=== PATIENT | male | born 1960 | race Caucasian/White ===

== ENCOUNTER 2020-11-08 19:35 | Emergency (ER) | payer OTHER, SELFPAY ==
--- NOTE | 2020-11-08 19:40 | ED.ANIMALBIT ---
HPI - Animal Bite General Chief Complaint: Animal Bite Stated Complaint: dog bite hand Time Seen by Provider: 11/08/20 19:39 Source: patient and RN notes reviewed Mode of arrival: ambulatory History of Present Illness complaint: animal bite Onset (ago): minute(s) (20) Animal: dog Description of animal: household pet Mechanism: bite Location - Extremities: Right: hand Pain description: dull and constant Severity scale (1-10): 2 Context: playing with animal Associated symptoms: none Related Data Patient tetanus UTD: Yes Home Medications Medication Instructions Recorded Confirmed losartan 50 mg PO DAILY 11/08/20 11/08/20 Allergies Allergy/AdvReac Type Severity Reaction Status Date / Time No Known Allergies Allergy Verified 11/08/20 20:41 Review of Systems Review of Systems: All systems reviewed & are unremarkable except as noted in HPI and below PMFSH Past Medical History Medical History (Updated 11/08/20 @ 20:29 by Chuy Bone MD) Hypertension Prostate cancer Surgical History Surgical History (Updated 11/08/20 @ 20:29 by Chuy Bone MD) History of arthroscopic knee surgery Social History Social History (Updated 11/08/20 @ 20:30 by Chuy Bone MD) Tobacco type: smokeless tobacco Alcohol intake: current Substance use: never Gender identity (if verbalized by the patient): Male Exam Const: General: healthy appearing and no acute distress Nutritional Appearance: well nourished Orientation/consciousness: patient oriented x3 Limitations: altered mental status HENMT: Head: normal to inspection Ears: external ears normal Eyes: Conjunctivae: conjunctivae normal Pupils: Equal, round and reactive pupils present EOM: EOMs intact bilaterally Neck: Neck: normal visual inspection Resp: Effort & Inspection: normal respiratory effort Auscultation: clear to auscultation bilaterally Cardio: Rate: regular rate Rhythm: regular rhythm GI: GI Palp: Yes Soft to palpation and No Tenderness to palpation present (GI) Auscultation: normal bowel sounds Back/Spine/Pelvis: Cervical Spine: cervical ROM normal Thoracic/Lumbar Spine: thoraco-lumbar ROM normal Skin: Wounds: wounds noted flap right dorsal hand size (13 cm) and open, laceration right dorsal hand size (2 cm) Neuro: General: patient oriented x3, moves all extremities, no focal motor deficits and CN's II-XI intact bilaterally Speech: normal speech Gait exam (Neuro): Normal gait present Psych: Appearance: grossly normal and well kempt Mental Status: mental status grossly normal Affect: normal affect Attitude: cooperative Thought content: Yes Normal thought content present Course Vital Signs Vital signs: Vital Signs Temperature 36.8 C 11/08/20 20:05 Pulse Rate 64 11/08/20 20:05 Respiratory Rate 20 11/08/20 20:05 Blood Pressure 125/87 11/08/20 20:05 Pulse Oximetry 98 11/08/20 20:05 Temperature 36.7 C 11/08/20 20:37 Pulse Rate 62 11/08/20 20:37 Respiratory Rate 20 11/08/20 20:37 Blood Pressure 122/82 11/08/20 20:37 Pulse Oximetry 98 11/08/20 20:37 Procedures Laceration Laceration 1: Date: 11/08/20 Site: hand ( dorsum) Side (If applicable): right Size (cm): 13 Description: flap and clean Depth: simple, single layer Local Anesthetic: lidocaine 1% Amount of anesthesia used (mL): 8 Pre-repair: wound explored and irrigated ====== Skin Level ====== Skin layer closed with: nylon Size (cm): 4-0 Number of sutures: 23 Technique: simple, interrupted and running ====== Subcutaneous Layer ====== ====== Muscle Layer ====== ====== Tendon Layer ====== Dressing: triple antibiotic, Telfa and Yuliana Laceration 2: Date: 11/08/20 Site: hand ( between the 2nd 3rd fingers in the web space) Side (If applicable): right Size (cm): 2 Description: neshaa
[2020-11-08 20:05] VITALS: BP 125/87; PULSE 64; RESP 20; TEMP 36.8; O2SAT 98
[2020-11-08] MEDS: AMOXICILLIN/CLAVULANATE K 875-125 MG TAB 1 TABLET PO (20:35)
[2020-11-08] MEDS: NEOMYCIN/POLYMYXIN/BACITRACIN OINTMENT PACKET 3 PACKET (20:35)
[2020-11-08 20:37] VITALS: BP 122/82; PULSE 62; RESP 20; TEMP 36.7; O2SAT 98
== END 2020-11-08 20:45 | disposition home or self-care (01) ==
PROVIDERS: Emergency Provider Emergency Medicine
DX: S61.411A Laceration without foreign body of right hand, initial encounter (principal); W54.0XXA Bitten by dog, initial encounter
CPT/HCPCS: 12005; 99283; A9270

== ENCOUNTER 2024-08-28 10:46 | Outpatient (RCR) | payer MEDICARE, SELFPAY ==
--- NOTE | 2024-08-28 12:03 | OPREHPOC ---
Outpatient Therapy Plan of Care This is a Multidisciplinary Plan of Care that may contain components documented by all disciplines (PT, OT, and ST.) PT Problem 1 PT Problem #1 Knowledge Deficit PT Goal 1 Goal / Goal Update The patient will be independent in a home exercise program. Target Visit 2 PT Problem 2 PT Problem #2 Pain PT Goal 1 Goal / Goal Update The patient will report no greater than 2/10 cervical pain with rotation and extension. Target Visit 8 PT Problem 3 PT Problem #3 Impaired Functional Mobility PT Goal 1 Goal / Goal Update The patient will demonstrate 5% or less self perceived disability per the Neck Index questionnaire. Target Visit 8 PT Problem 4 PT Problem #4 Impaired Range of Motion PT Goal 1 Goal / Goal Update The patient will improve bilateral cervical rotation AROM to at least 50 degrees to improve ability to turn his head and improve safety while driving. Target Visit 8
--- NOTE | 2024-08-28 12:04 | PTOPEVAL1 ---
Assessment and note entered by Sapna Jane PT Evaluation Information Assessment Status Evaluation ICD-10 Condition Codes (PT) Cervicalgia M54.2 Other ICD-10 Condition Codes ( M48.02 PT) Onset 08/23/24 Subjective Information Reggie Adrian reports he has been having neck pain and was going to the chiropractor for a couple months. He finished up with the chiropractor right before . He then saw his primary doctor in July and was ordered an x-ray. The x-ray showed spinal stenosis and he was told to take naproxen and a muscle relaxer. He also had a MRI and that showed stenosis and arthritis. He decided to see a specialist at [facility] and was told he did not need surgery and was referred to PT. The patient has pain on the right side of his neck that increases when he tilts his head back or turns his head quickly. He is using naproxen, hot packs, and ice packs for pain. 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 He denies pain or radiating symptoms at this time. Reported Pain Level Pain Score 1: Self Report Assessment PT Clinical Summary Reggie Adrian presents with chronic neck pain and was recently diagnosed with spinal stenosis. He has difficulty with turning his head, tilting his head back, driving, and performing recreational activities. He objectively demonstrates decreased cervical AROM with elicited with extension and bilateral rotation, poor upper trunk and head posture, tension in bilateral upper trapezius muscles, and decreased left shoulder strength. He will benefit from skilled PT to address these limitations. Plan of Care Interventions Electrical Stimulation,Hot Pack/Cold Pack,Manual Therapy,Mechanical Traction,Neuro Re-education, Patient/Caregiver Education,Therapeutic Activities ,Therapeutic Exercise PT Services Indicated Yes Treatment Frequency and 2 times a week for 8 visits Duration These treatments will address the objective and functional deficits as defined above. The patient will be advanced safely and appropriately in order for the patient to progress towards his/her prior level of function. Additional exercises will be introduced and as well as a comprehensive home exercise program upon discharge, if needed, ?to ensure carryover of functional gains achieved in the clinic. This treatment plan has been reviewed and agreement upon by the patient.
--- NOTE | 2024-09-19 07:48 | OPREHPOC ---
Outpatient Therapy Plan of Care This is a Multidisciplinary Plan of Care that may contain components documented by all disciplines (PT, OT, and ST.) PT Problem 1 PT Problem #1 Knowledge Deficit PT Goal 1 Goal / Goal Update The patient will be independent in a home exercise program. Target Visit 2 Progress Met PT Problem 2 PT Problem #2 Pain PT Goal 1 Goal / Goal Update The patient will report no greater than 2/10 cervical pain with rotation and extension. Target Visit 8 Progress Met PT Problem 3 PT Problem #3 Impaired Functional Mobility PT Goal 1 Goal / Goal Update The patient will demonstrate 5% or less self perceived disability per the Neck Index questionnaire. Target Visit 8 Progress Not Met PT Problem 4 PT Problem #4 Impaired Range of Motion PT Goal 1 Goal / Goal Update The patient will improve bilateral cervical rotation AROM to at least 50 degrees to improve ability to turn his head and improve safety while driving. Target Visit 8 Progress Met
--- NOTE | 2024-09-19 07:48 | PTOPDC ---
Assessment and note entered by Sapna Jane, PT Evaluation Information Assessment Status Discharge ICD-10 Condition Codes (PT) Cervicalgia M54.2 Other ICD-10 Condition Codes ( M48.02 PT) Onset 08/23/24 Subjective Information Reggie Adrian reports his neck pain is greatly improved since he has been coming to PT. 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 Reported Pain Level Pain Score 0: Self Report Assessment PT Clinical Summary Reggie Adrian has completed 8 skilled PT visits for cervicalgia. He is reporting significant reduction in his pain and has been able to perform stretches and use hot packs to reduce pain when it does occur. He is demonstrating improved cervical AROM, improved UE strength, resolved tenderness in the upper trapezius, and improved posture. He is independent in a home exercise program for flexibility, posture, and strength. He has met 75% of his goals and will be discharged to his independent home exercise program. Plan of Care PT Services Indicated No
== END 2024-09-19 17:21 | disposition home or self-care (01) ==
LOC: CHSPT 10:46
DX: M54.2 Cervicalgia (principal); M48.02 Spinal stenosis, cervical region
CPT/HCPCS: 97014; 97110; 97140; 97161; G0283